=== PATIENT | male | born 1995 | race African-American/Black ===

== ENCOUNTER 2021-09-27 10:29 | Emergency (ER) | payer SELFPAY ==
[2021-09-27] MEDS ORDERED: Ketorolac Tromethamine 30 MG/ML VIAL ONE (10:51)
== END 2021-09-27 11:13 | disposition home or self-care (01) ==
LOC: ERS 10:29
DX: M25.571 Pain in right ankle and joints of right foot (principal); J45.909 Unspecified asthma, uncomplicated
CPT/HCPCS: 96372; J1885

== ENCOUNTER 2024-08-17 17:39 | Emergency (ER) | payer SELFPAY ==
[2024-08-17] MEDS ORDERED: Boostrix 0.5 ML (Tdap) VIAL (>/=7 yrs of age) ONE (18:02)
== END 2024-08-17 18:13 | disposition home or self-care (01) ==
LOC: ERS 17:39
DX: S01.21XA Laceration without foreign body of nose, initial encounter (principal); J02.8 Acute pharyngitis due to other specified organisms; B96.89 Other specified bacterial agents as the cause of diseases classified elsewhere; F17.290 Nicotine dependence, other tobacco product, uncomplicated; Z23 Encounter for immunization; W09.8XXA Fall on or from other playground equipment, initial encounter; Y93.44 Activity, trampolining
CPT/HCPCS: 87081; 87428; 87430; 90471; 90715